=== PATIENT | female | born 1965 | race Caucasian/White ===

== ENCOUNTER 2018-12-17 11:34 | Day surgery (SDC) | payer MEDICAID ==
[2018-12-17] MEDS: PHENYLephrine 2.5% 15 ML OPH LEFT EYE (12:52)
[2018-12-17] MEDS: TROPICAMIDE 1% 15 ML OPH LEFT EYE (12:53)
[2018-12-17] MEDS: MOXIFLOXACIN 0.5% 3 ML OPH LEFT EYE (12:53)
[2018-12-17] MEDS: CYCLOPENTOLATE 1% 2 ML OPH LEFT EYE (12:53)
[2018-12-17] MEDS: LACTATED RINGER'S 1,000 ML IV (12:53)
[2018-12-17] MEDS: LIDOCAINE 1% (MPF) 5 ML VIAL INJ ×2 (13:05)
[2018-12-17] MEDS: TETRACAINE 0.5% 4 ML OPH RIGHT EYE ×2 (13:05)
[2018-12-17] MEDS: TOBRAMYCIN/DEXAMETH 3.5 GM OPH OINT RIGHT EYE ×2 (13:05)
[2018-12-17] MEDS ORDERED: MIDAZOLAM 1 MG/ML 2 ML INJ (13:31)
[2018-12-17] MEDS ORDERED: FENTAnyl 50 MCG/ML VIAL (13:36)
[2018-12-17] MEDS ORDERED: ONDANSETRON 4 MG INJ IV (14:30)
[2018-12-17] MEDS ORDERED: DIPHENHYDRAMINE 50 MG INJ IV (14:30)
[2018-12-17] MEDS ORDERED: hydrALAzine 20 MG INJ IV (14:30)
[2018-12-17] MEDS ORDERED: FENTAnyl 50 MCG/ML VIAL IV (14:30)
[2018-12-17] MEDS ORDERED: LABETALOL HCL 20MG INJ IV (14:30)
[2018-12-17] MEDS ORDERED: EPHEDrine 25 MG/5 ML SYG IV (14:30)
== END 2018-12-17 15:47 | disposition home or self-care (01) ==
LOC: SDS 11:34
DX: H25.042 Posterior subcapsular polar age-related cataract, left eye (principal); E03.9 Hypothyroidism, unspecified; J45.909 Unspecified asthma, uncomplicated
CPT/HCPCS: 66984; 84703